=== PATIENT | female | born 1940 | race Caucasian/White ===

== ENCOUNTER 2017-12-09 13:40 | Day surgery (SDC) | payer MEDICARE, SELFPAY ==
[2017-12-09] VITALS (9 sets, daily range): BP systolic 121–138; BP diastolic 62–78; PULSE 52–61; RESP 14–22; TEMP 35.8–37; O2SAT 94–99; BMI 21.4
--- NOTE | 2017-12-09 | PATH_ITS ---
[facility] Accession Number: [id number] . 01 Material submitted: . PART A: DUODENUM PART B: GASTRIC PART C: GE JUNCTION . 02 Diagnosis: A. Duodenum, Biopsy: Duodenal mucosa with no diagnostic abnormality. Negative for active inflammation, features of sprue, dysplasia and malignancy. . B. Stomach, Biopsies: Antral mucosa with mild chronic gastritis. Negative for Helicobacter by immunohistochemistry. Negative for intestinal metaplasia. Negative for dysplasia and malignancy. . C. Gastroesophageal Junction, Biopsies: Squamous mucosa with no diagnostic abnormality. Intraepithelial eosinophils are not increased. Negative for dysplasia and malignancy. [facility]/12/16/2017 . 02 Electronically signed: . Elle Paul MD, Pathologist NPI- [id number] . 01 Gross description: . Received three formalin-filled containers each labeled with the patient's name. . A. In a container labeled duodenum, the specimen consists of a 0.1 cm portion of tissue. Entirely submitted in cassette A. B. In a container labeled gastric, the specimen consists of a 0.1 cm portion of tissue. Entirely submitted in cassette B. C. In a container labeled GE junction, the specimen consists of a 0.1 cm portion of tissue. Entirely submitted in cassette C. ([facility].[id number]) . /[facility] . 02 Microscopic: . Part B: An immunohistochemical stain was performed to evaluate for Helicobacter organisms and is negative. The control stain showed appropriate reactivity. . Technical Component of IHC was performed by [facility], [facility], [address] [place] [address] [address], [place] [address], . CLIA #[id number], director medical economics Kishan Buchanan MD . 02 Pathologist provided ICD-10: R10.9 . 02 CPT . 344344, 218728, [id number], [id number] Performed at: 01 [facility] [address] [id number] MD Donny Reyes MD Phone: [phone] Performed at: 02 [facility] [place] [id number] [place], [place] [id number] MD Dion Agrawal MD Phone: [phone]
[2017-12-09] MEDS: SODIUM CHLORIDE 0.9% 1,000 ML 200 ML IV (14:00)
--- NOTE | 2017-12-09 15:31 | PM.PREOP ---
Pre-operative Note Interval Note Pre-op Check: Yes History & Physical Reviewed by Physician Changes: No ASA Class (for procedural sedation): III
--- NOTE | 2017-12-09 15:35 | SUR.OPER ---
to endo from opd via cart respirations unlabored iv patent positioned per self for procedure
--- NOTE | 2017-12-09 16:12 | PM.OP.1 ---
Operative Date/Time/Diagnoses Date of procedure: 12/09/17 Time of procedure: 16:12 Pre-op diagnosis: Anemia Post-op diagnosis: same Procedure & Clinicians Procedure: Esophageal gastroduodenoscopy with biopsies and colonoscopy to the cecum Same procedure as scheduled: Yes Indications: Last colonoscopy 2012 Surgeon: Violet Triana Click Yes if Unassisted: Yes Anesthesia Type: Sedation (Versed 6 mg; fentanyl 100 mcg) Operative Notes Findings: 1. Normal duodenum 2. Small pyloric channel ulcer-heaped up tissue consistent with healing and without active bleeding or open crater 3. Diffuse mild gastritis 4. GE junction at 32 cm from the incisors with a 4-5 cm hiatal hernia 5. Excellent colon prep 6. No polyps or mass lesions 7. No evidence of diverticulosis 8. Anastomosis identified at 10 cm from the anal verge and without any evidence of recurrence 9. Grade 2 internal hemorrhoids Closure Type: not applicable Specimen(s): other (Cold forceps biopsies of 1. Duodenum, 2. Antrum, 3. GE junction) Estimated Blood Loss (mL): 1 Blood products transfused: none Procedure in detail: After obtaining informed consent, the patient was brought to the GI suite and placed in the left lateral decubitus position on the examination table. After placement of appropriate monitors, the patient was given incremental doses of Versed and Fentanyl until an appropriate level of sedation was achieved. A time out was held per SCOAP protocol. We began with EGD. A bite block was gently placed between the patient's teeth. The endoscope was lubricated and then passed into the patient's posterior oropharynx. The esophagus was cannulated under direct vision and the scope was passed to the second portion of the duodenum without difficulty. The scope was then withdrawn with careful examination of all areas of the upper GI tract and mucosa. In the stomach, the instrument was retroflexed and the GE junction examined. The scope was straightened and the procedure continued with examination of the remainder of the upper GI tract. Findings are noted above. Air was aspirated from the stomach and the endoscope gently removed from the esophagus. The examination table was turned and we continued with the colonoscopy. A digital rectal examination was performed and did not reveal any masses or obstructing lesions. The colonoscope was gently passed into the patient's anus and the entire colon navigated to the level of the cecum with minimal difficulty. Once in the cecum, the scope was withdrawn being sure to go before and beyond all mucosal folds and prominences and get an excellent examination. The findings are noted above. At the level of the rectal vault, the scope was retroflexed and the internal anal canal was examined. The scope was straightened and air aspirated from the colon. The instrument was removed from the patient's body and the procedure was concluded. The patient was allowed to awaken from sedation without difficulty and taken to the post-anesthesia care unit in good condition. Total sedation time was 30 min Total colonoscopy withdrawal time was 9 min Complications: none Condition: stable Disposition: PACU Plan for aftercare: 1. Discharge to home 2. We will contact you with pathology results and recommendations
--- NOTE | 2017-12-09 16:13 | SUR.OPER ---
tolerated procedure well
[2017-12-09] MEDS: LIDOCAINE 4% SOLN 50 ML 20 ML TOP (16:22)
[2017-12-09] MEDS: fentaNYL 250 MCG/5 ML INJ 100 MCG IV (16:22)
[2017-12-09] MEDS: MIDAZOLAM 5 MG/5 ML VIAL 6 MG IV (16:22)
[2017-12-09] MEDS: TETRACAINE/BENZOCAINE/BUTAMBEN (CETACAINE) BOTTLE 1 SPRAY TOP (16:23)
--- NOTE | 2017-12-09 17:00 | SUR.PHASEI ---
pt tolerating sips of juice, abdomen remains soft and non distended
== END 2017-12-09 17:39 ==
PROVIDERS: PCP Family Medicine; Visit Provider Surgery
PROC: 0DJ08ZZ Inspection of Upper Intestinal Tract, Via Natural or Artificial Opening Endoscopic (ICD-10-PCS; CPT 43235; principal; 2017-12-09 15:00)
PROC: 0DJD8ZZ Inspection of Lower Intestinal Tract, Via Natural or Artificial Opening Endoscopic (ICD-10-PCS; CPT 45378; 2017-12-09 15:00)
DX: D64.9 Anemia, unspecified (principal); K29.70 Gastritis, unspecified, without bleeding; K64.1 Second degree hemorrhoids; K44.9 Diaphragmatic hernia without obstruction or gangrene; Z85.038 Personal history of other malignant neoplasm of large intestine
CPT/HCPCS: 43239; 45378; 88305; 88342; 99152; 99153; J2250; J3010

== ENCOUNTER → 2018-03-10 13:04 | Outpatient (CLI) | payer MEDICARE, SELFPAY ==
--- NOTE | 2018-03-10 | DI.RAD.S_ITS ---
PROCEDURE: XR CHEST 2V INDICATIONS: A-FIB TECHNIQUE: 2 views of the chest were acquired. COMPARISON: [facility], , CHEST 2 VIEW, 10/17/2015, 10:48. FINDINGS: Surgical changes and devices: Surgical clips medial left supraclavicular fossa. Lungs and pleura: No pleural effusions or pneumothorax. Lungs are clear but lung bars are relatively large. Mediastinum: Mediastinal contours are normal. Heart size is normal. Bones and chest wall: No suspicious bony abnormalities. Soft tissues appear unremarkable. IMPRESSION: No sign of CHF. Relatively large lung volumes. No definite underlying pneumonia or neoplasm is suspected. Dictated by: Sriram [place] M.D. on 03/10/2018 at 14:07 Approved by: Sriram [place] M.D. on 03/10/2018 at 14:08
== END ==
PROVIDERS: Family Provider Internal Medicine Cardiovascular Disease; PCP Family Medicine; Visit Provider Family Medicine
DX: I48.91 Unspecified atrial fibrillation (principal)
CPT/HCPCS: 71046

== ENCOUNTER → 2018-09-08 10:22 | Outpatient (REF) | payer MEDICARE, SELFPAY ==
[2018-09-08 10:32] LABS: INR 1.7 (0.9-1.3); Prothrombin Time 20.3 SECONDS (10.1-12.7)
== END ==
LOC: LAB 10:22
PROVIDERS: Family Provider Internal Medicine Cardiovascular Disease; PCP Family Medicine; Visit Provider Family Medicine
DX: Z79.01 Long term (current) use of anticoagulants (principal); I48.91 Unspecified atrial fibrillation
CPT/HCPCS: 85610

== ENCOUNTER 2018-09-22 10:17 | Emergency (ER) | payer MEDICARE, SELFPAY ==
[2018-09-22] VITALS (7 sets, daily range): BP systolic 118–145; BP diastolic 61–73; PULSE 51–62; RESP 13–18; TEMP 36.3; O2SAT 95–98
[2018-09-22 11:02] LABS: Add Manual Diff / Slide Review NO; Basophils Absolute Auto 0 /uL (0-100); Basophils Percent Auto 0.6 % (0-2); Eosinophils Absolute Auto 200 /uL (0-450); Hematocrit 29.6 % (36-46); Hemoglobin 9.8 g/dL (12.0-16.0); Lymphocytes Absolute Auto 300 /uL (1100-4500); Lymphocytes Percent Auto 4.1 % (25-40); Mean Corpuscular Hemoglobin 27.1 PG (26-34); Monocytes Absolute Auto 800 /uL (0-900); Monocytes Percent Auto 10.2 % (3-14); Neutrophils Absolute Auto 6300 /uL (1500-7000); Neutrophils Percent Auto 82.1 % (50-75); Platelet Count 246 X10^3/uL (150-400); Red Blood Cell Count 3.62 X10^6/uL (4.0-5.2); Red Cell Distribution Width 14.5 % (11.6-14.8); White Blood Cell Count 7.7 X10^3/uL (4.5-11.0)
[2018-09-22 11:05] LABS: Alanine Aminotransferase 28 IU/L (9-52); Albumin 3.9 g/dL (3.5-5.0); Albumin Globulin Ratio 1.3 (1.0-2.8); Alkaline Phosphatase 110 U/L (38-126); Aspartate Aminotransferase 23 IU/L (14-36); Bilirubin Total 0.6 mg/dL (0.2-1.3); Blood Urea Nitrogen 35 mg/dL (7-17); Calcium 8.9 mg/dL (8.4-10.2); Carbon Dioxide 28 mmol/L (22-32); Chloride 102 mmol/L (98-107); Creatine Kinase 60 U/L (30-135); Estimated Glomerular Filt Rate 36.3 mL/min (>60); Glucose 96 mg/dL (80-110); HEMOLYSIS < 15 (0-50); Potassium 3.6 mmol/L (3.4-5.1); Sodium 139 mmol/L (137-145); Total Protein 6.9 g/dL (6.3-8.2)
[2018-09-22 11:10] LABS: Prothrombin Time 72.7 SECONDS (10.1-12.7)
[2018-09-22 11:17] LABS: Troponin I < 0.012 ng/mL (0.01-0.034)
--- NOTE | 2018-09-22 13:50 | DI.RAD.S_ITS ---
PROCEDURE: XR CHEST 1V INDICATIONS: shortness of breath TECHNIQUE: One view of the chest was acquired. COMPARISON: [facility], , CHEST 2 VIEW, 10/17/2015, 10:48. FINDINGS: Surgical changes and devices: Surgical clips are seen at the base of the left neck. Lungs and pleura: Perihilar interstitial prominence is present. No focal consolidation is appreciated. No large effusion or pneumothorax is identified. Mediastinum: Mediastinal contours appear normal. Heart size is mildly enlarged. There is aortic atherosclerosis. Bones and chest wall: No suspicious bony lesions. Degenerative changes of the bilateral shoulders and spine are not well characterized. Overlying soft tissues appear unremarkable. IMPRESSION: Cardiomegaly with associated moderate vascular congestion is suspicious for developing pulmonary edema. Please correlate clinically. Dictated by: George Edwards M.D. on 09/22/2018 at 13:28 Approved by: George Edwards M.D. on 09/22/2018 at 13:31
--- NOTE | 2018-09-22 14:15 | ED.WEAKNESS ---
HPI - Weakness General Chief complaint: Weakness Stated complaint: SOB Time Seen by Provider: 09/22/18 11:13 Source: patient, family and EMS Mode of arrival: ambulatory Limitations: no limitations History of Present Illness HPI Narrative: Patient presents emergency department complaining of generalized weakness for about the last week. Patient states she has been weak before, but that she has not felt like she has had her normal strength, ever since having a stress test last week. Patient states she had a non treadmill. Dress test, and that when they injected the medication to make her heart beat up, she felt as if she was going to . Patient states that since then, she has not felt as though she had her usual energy level. Patient denies fevers or chills. No cough. She states she has been a little more short of breath than normal. patient has a history of paroxysmal atrial fibrillation, and seems to have been more than usual recently. She was seen at [facility] for the same symptoms several days ago, was worked up. Troponin was negative there, and the only thing that showed up was the patient was back in atrial fibrillation. She was electrically cardioverted for her atrial fibrillation, but feels that the AFib started up very soon afterward again. Patient was found to have a subtherapeutic INR of less than 2 while at [facility], and was instructed to raise her dose of Coumadin over the next week. Patient states she has been following the regimen outlined for her. Patient sees Dr. Poe through [facility] for cardiology, but that she has seen him since the stress test. Patient does note a history of congestive heart failure, but denies swelling in her legs. No chest pain. No other complaints at this time. Related Data Home Medications Medication Instructions Recorded Confirmed simvastatin [Zocor] 20 mg PO DAILY #0 03/07/10 09/22/18 hydroxychloroquine [Plaquenil] 200 mg PO DAILY #0 07/22/17 09/22/18 nitroglycerin [Nitrostat] 0.4 mg SUBLINGUAL PRN PRN #0 07/22/17 09/22/18 warfarin 1.5 mg PO DAILY #0 07/22/17 09/22/18 carvedilol 6.25 mg PO BID 09/22/18 09/22/18 furosemide 20 mg PO DAILY 09/22/18 09/22/18 isosorbide mononitrate 30 mg PO DAILY 09/22/18 09/22/18 levothyroxine 50 mcg PO DAILY 09/22/18 09/22/18 Previous Rx's Medication Instructions Recorded furosemide 40 mg PO DAILY #5 tab 09/22/18 Allergies Allergy/AdvReac Type Severity Reaction Status Date / Time codeine [CODEINE] Allergy Severe confusion Verified 09/22/18 15:13 Penicillins [PENICILLINS] Allergy Severe SHORTNESS Verified 09/22/18 15:13 OF BREATH, SWELLING iodine [IODINE] Allergy Intermediate crab-erythema, Verified 09/22/18 15:13 itching; reported tolerating topical iodine Bleach (Sodium Hypochlorite) AdvReac Verified 09/22/18 15:13 shellfish derived AdvReac Verified 09/22/18 15:13 tree nut AdvReac Verified 09/22/18 15:13 Review of Systems Constitutional Denies chills, Reports fatigue, Denies fever(s), Denies lethargy and Reports weakness Eyes Denies change in vision, Denies eye discharge, Denies irritation and Denies loss of vision ENT Ears, Nose, Mouth, and Throat: Denies change in voice, Denies neck pain and Denies sore throat Cardiovascular Denies chest pain, Denies irregular heart rhythm, Denies lightheadedness, Denies palpitations, Denies dyspnea, Denies dyspnea on exertion and Denies orthopnea Respiratory Denies cough, Denies dyspnea, Denies dyspnea on exertion and Denies wheezing Gastrointestinal Gastrointestinal: Denies abdominal pain, Denies change in bowel habits, Denies diarrhea, Denies nausea and Denies vomiting Genitourinary Denies hematuria, Denies flank pain, Denies urinary incontinence and Denies urinary urgency Musculoskeletal Denies neck pain Integumentary/Breasts Denies pruritus, Denies erythema, Denies rash and Denies wounds Neurologic Denies confusion, Denies loss of vision and Reports weakness Psychiatric Denies anxiety, Denies confusion, Denies depression, Denies homicidal ideation and Denies suicidal ideation Endocrine Reports fatigue and Denies palpitations Hematologic/Lymphatic Denies easy bruising Allergic/Immunologic Denies wheezing [facility] Medical History Atrial fibrillation (Acute) Congestive heart failure (Acute) Coumadin toxicity (Acute) Biceps tendon rupture (Acute) Surgical History No pertinent past surgical history (Acute) Social History household members: none Social History household members: none Exam Initial Vital Signs Initial Vital Signs: Vital Signs Temperature 97.3 F L 09/22/18 10:36 Pulse Rate 60 09/22/18 10:36 Respiratory Rate 13 09/22/18 10:36 Blood Pressure 118/73 09/22/18 10:36 Pulse Oximetry 98 09/22/18 10:36 Const General: cooperative and well developed Nutritional Appearance: well nourished Orientation: alert, awake, oriented x3 and not confused Other: Patient is mildly anxious, but in no apparent distress otherwise. HENMT Head: normocephalic and atraumatic Ears: external ears normal Nose: external nose normal and No nasal discharge Face and sinus: face symmetric and No dry mucous membranes Mouth: oral mucosae normal and moist mucous membranes Teeth and gingiva: dentition normal Eyes General: appearance normal, both eyes and all related structures Eyelids: eyelids normal Conjunctivae: conjunctivae normal Sclera: sclerae normal Pupils: PERRL EOM: EOM intact bilaterally Neck Neck: normal visual inspection, trachea midline, No lymphadenopathy, No midline deformity and No JVD Lymphatic: No lymphedema Chest Chest: normal inspection of the chest Resp Effort & Inspection: normal respiratory effort, able to speak in complete sentences, no respiratory distress and no use of accessory muscles Auscultation: clear to auscultation bilaterally, no rales, no rhonchi and no wheezes Cardio Rate: regular rate Rhythm: abnormal rhythm irregularly irregular Heart Sounds: no click, no gallops, no murmurs and no rubs Pulses: normal peripheral pulses GI Inspection: non-distended Palpation: soft, no hepatosplenomegaly, No guarding, No pulsatile mass and No tender Auscultation: normal bowel sounds Back/Spine/Pelvis Back: No CVA tenderness Cervical Spine: cervical ROM normal and No pain with cervical ROM Thoracic/Lumbar Spine: thoracic and lumbar spine normal to inspection Skin General: no rashes or lesions noted, No jaundice and No petechiae Neuro General: alert, oriented x3, gait normal and no focal motor deficits Speech: speech normal Extrem General: full ROM, no pedal edema and no calf tenderness Psych Appearance: well kempt Mental Status: mental status grossly normal Attitude: cooperative Thought Content: normal and suicidality Judgment: judgment good Course Course Narrative: Patient was worked up with labs, EKG, and chest x-ray. She was found to have a moderately elevated BNP, as well as findings of mild CHF on x-ray. She also had an INR of 6.0. She was in atrial fibrillation, though the rate was well controlled. Patient was given an IV dose of Lasix. I discussed with her that the increase in the Coumadin dose has probably caused her INR to overshoot. However, the patient is not currently bleeding, and she has an appointment to have her INR recheck tomorrow. I have advised her that she should hold her dose of Coumadin tonight and see where that puts her tomorrow. I anticipate that most likely, the INR will fluid down to within the normal range by holding the Coumadin dose. I discussed with the patient that we have found mild evidence of CHF on her workup, though she does not have any lower extremity edema. Patient's troponin once again is normal, as it was at [facility]. I have attempted to get a hold of Dr. Poe, but he was not available today. I have asked the patient to follow up with her primary doctor, Dr. Lozoya, with whom I have spoken today. Dr. Lozoya has requested that I have the patient call the office tomorrow, and they will get her in an expedited fashion. Patient will also follow up for her INR recheck tomorrow. The patient continues to be in atrial fibrillation, but given that she has been in AFib but repeatedly over the last week, and that the cardioversion had very little lasting effect, I have not cardioverted her again today. Patient and son are agreeable to this plan. We have discussed the usual indications for return. Patient is stable, with good oxygen saturation and no distress. Orders Ordered: Discontinued Medications Acetaminophen (Tylenol) 650 mg PO NOW ONE Stop: 09/22/18 15:11 Last Admin: 09/22/18 15:13 Dose: 650 mg Furosemide (Lasix) 40 mg IV NOW ONE Stop: 09/22/18 15:07 Last Admin: 09/22/18 15:13 Dose: 40 mg Vital Signs - 8 hr 09/22/18 10:36 09/22/18 11:09 09/22/18 11:59 Temperature 97.3 F L Pulse Rate 60 51 L 57 L Respiratory Rate 13 Blood Pressure 118/73 Blood Pressure [Right Arm] 143/61 H Pulse Oximetry 98 96 96 09/22/18 13:15 09/22/18 14:05 Temperature Pulse Rate 62 53 L Respiratory Rate Blood Pressure Blood Pressure [Right Arm] 145/66 H 131/69 Pulse Oximetry MDM - Weakness Medical Records Attestation: I reviewed the patient's medical records. Lab Data Attestation: I reviewed the patient's lab results. Result diagrams: 09/22/18 10:50 09/22/18 10:50 Lab Results 09/22/18 09/22/18 09/22/18 Range/Units 10:50 10:50 10:50 WBC 7.7 (4.5-11.0) X10^3/uL RBC 3.62 L (4.0-5.2) X10^6/uL Hgb 9.8 L (12.0-16.0) g/dL Hct 29.6 L (36-46) % MCV 82.0 (80-100) fL MCH 27.1 (26-34) PG MCHC 33.0 (30-36) % RDW 14.5 (11.6-14.8) % Plt Count 246 (150-400) X10^3/uL Neut % (Auto) 82.1 H (50-75) % Lymph % (Auto) 4.1 L (25-40) % Gilchrist % (Auto) 10.2 (3-14) % Eos % (Auto) 3.0 (2-4) % Baso % (Auto) 0.6 (0-2) % Neut # (Auto) 6300 (5934-2143) /uL Lymph # (Auto) 300 L (3483-1331) /uL Gilchrist # (Auto) 800 (0-900) /uL Eos # (Auto) 200 (0-450) /uL Baso # (Auto) 0 (0-100) /uL PT 72.7 H (10.1-12.7) SECONDS INR 6.0 H* (0.9-1.3) Sodium 139 (137-145) mmol/L Potassium 3.6 (3.4-5.1) mmol/L Chloride 102 (98-107) mmol/L Carbon Dioxide 28 (22-32) mmol/L BUN 35 H (7-17) mg/dL Creatinine 1.40 H (0.52-1.04) mg/dL Estimated GFR 36.3 L (>60) mL/min BUN/Creatinine Ratio 25.0 H (6-22) Glucose 96 (80-110) mg/dL Calcium 8.9 (8.4-10.2) mg/dL Total Bilirubin 0.6 (0.2-1.3) mg/dL AST 23 (14-36) IU/L ALT 28 (9-52) IU/L Alkaline Phosphatase 110 (38-126) U/L Total Creatine Kinase 60 (30-135) U/L CK-MB (CK-2) TNP CK-MB (CK-2) Rel Index TNP Troponin I < 0.012 (0.01-0.034) ng/mL B-Natriuretic Peptide (<100) Total Protein 6.9 (6.3-8.2) g/dL Albumin 3.9 (3.5-5.0) g/dL Globulin 3.0 (1.7-4.1) g/dL Albumin/Globulin Ratio 1.3 (1.0-2.8) 09/22/18 Range/Units 10:50 WBC (4.5-11.0) X10^3/uL RBC (4.0-5.2) X10^6/uL Hgb (12.0-16.0) g/dL Hct (36-46) % MCV (80-100) fL MCH (26-34) PG MCHC (30-36) % RDW (11.6-14.8) % Plt Count (150-400) X10^3/uL Neut % (Auto) (50-75) % Lymph % (Auto) (25-40) % Gilchrist % (Auto) (3-14) % Eos % (Auto) (2-4) % Baso % (Auto) (0-2) % Neut # (Auto) (2630-0238) /uL Lymph # (Auto) (0119-1397) /uL Gilchrist # (Auto) (0-900) /uL Eos # (Auto) (0-450) /uL Baso # (Auto) (0-100) /uL PT (10.1-12.7) SECONDS INR (0.9-1.3) Sodium (137-145) mmol/L Potassium (3.4-5.1) mmol/L Chloride (98-107) mmol/L Carbon Dioxide (22-32) mmol/L BUN (7-17) mg/dL Creatinine (0.52-1.04) mg/dL Estimated GFR (>60) mL/min BUN/Creatinine Ratio (6-22) Glucose (80-110) mg/dL Calcium (8.4-10.2) mg/dL Total Bilirubin (0.2-1.3) mg/dL AST (14-36) IU/L ALT (9-52) IU/L Alkaline Phosphatase (38-126) U/L Total Creatine Kinase (30-135) U/L CK-MB (CK-2) CK-MB (CK-2) Rel Index Troponin I (0.01-0.034) ng/mL B-Natriuretic Peptide 1070 H (<100) Total Protein (6.3-8.2) g/dL Albumin (3.5-5.0) g/dL Globulin (1.7-4.1) g/dL Albumin/Globulin Ratio (1.0-2.8) Imaging Data Chest x-ray: Attestation: I personally reviewed and interpreted this imaging study as follows: My impression: Mild CHF Radiologist's impression: PROCEDURE: XR CHEST 1V INDICATIONS: shortness of breath TECHNIQUE: One view of the chest was acquired. COMPARISON: [facility], , CHEST 2 VIEW, 10/17/2015, 10:48. FINDINGS: Surgical changes and devices: Surgical clips are seen at the base of the left neck. Lungs and pleura: Perihilar interstitial prominence is present. No focal consolidation is appreciated. No large effusion or pneumothorax is identified. Mediastinum: Mediastinal contours appear normal. Heart size is mildly enlarged. There is aortic atherosclerosis. Bones and chest wall: No suspicious bony lesions. Degenerative changes of the bilateral shoulders and spine are not well characterized. Overlying soft tissues appear unremarkable. IMPRESSION: Cardiomegaly with associated moderate vascular congestion is suspicious for developing pulmonary edema. Please correlate clinically. Dictated by: George Edwards M.D. on 09/22/2018 at 13:28 Approved by: George Edwards M.D. on 09/22/2018 at 13:31 ECG Data Attestation: I personally reviewed and interpreted this ECG as follows: (See below) Interpretation: Twelve lead EKG performed September 22, 2018, at 10:42 a.m., as follows: Irregular ventricular rhythm with a rate of 66 beats per minute PA intervals and P-waves undetectable QRS duration 98 millisecond QTC interval [address] T wave changes Interpretation: Atrial fibrillation with normal response; nonspecific ST T wave abnormality; abnormal EKG as interpreted by ED MD. Discharge Plan Departure Patient Disposition: Home Clinical Impression: Atrial fibrillation Qualifiers: Atrial fibrillation type: chronic Qualified Code(s): I48.2 - Chronic atrial fibrillation Congestive heart failure Qualifiers: Heart failure type: unspecified Heart failure chronicity: acute on chronic Qualified Code(s): I50.9 - Heart failure, unspecified Coumadin toxicity Qualifiers: Encounter type: initial encounter Injury intent: accidental or unintentional Qualified Code(s): T45.511A - Poisoning by anticoagulants, accidental (unintentional), initial encounter Discharge Date/Time: 09/22/18 16:43 Interventions: ED Discharge Assessment Last Done: 09/22/18 16:42 Instructions: DI for Heart Failure, DI for Atrial Fibrillation Activity Restrictions/Additional Instructions: Your INR has been found to be 6.0 today. As such, you should hold off on taking your Coumadin dose tonight, and wait to take any further Coumadin until you are seen at the clinic and have your INR rechecked tomorrow. Your case has been discussed with Dr. Lozoya, who would like to see you on Friday for follow-up. Please call her office tomorrow to schedule this appointment. You will be given 5 days of Lasix at double usual dose, according to Dr. Lozoya's request. Please discuss Cardiology follow-up with Dr. Lozoya, as well. Prescriptions: New furosemide 40 mg tablet 40 mg PO DAILY Qty: 5 RF: 0 No Action simvastatin [Zocor] 20 MG tablet 20 mg PO DAILY Qty: 0 RF: 0 warfarin 1 MG tablet 1.5 mg PO DAILY Qty: 0 RF: 0 hydroxychloroquine [Plaquenil] 200 MG tablet 200 mg PO DAILY Qty: 0 RF: 0 nitroglycerin [Nitrostat] 0.4 MG tablet, sublingual 0.4 mg Sublingual PRN PRN (Reason: Chest Pain) Qty: 0 RF: 0 carvedilol 6.25 mg tablet 6.25 mg PO BID RF: 0 isosorbide mononitrate 30 mg tablet extended release 24 hr 30 mg PO DAILY RF: 0 levothyroxine 50 mcg tablet 50 mcg PO DAILY RF: 0 furosemide 20 mg tablet 20 mg PO DAILY RF: 0 Referrals: Preethi Lozoya MD [Primary Care Provider] -
[2018-09-22 14:30] LABS: B Type Natriuretic Peptide 1070 (<100)
[2018-09-22] MEDS: FUROSEMIDE 40 MG/4 ML VIAL IV (15:13)
[2018-09-22] MEDS: ACETAMINOPHEN 325 MG TABLET 650 MG PO (15:13)
== END 2018-09-22 16:43 | disposition home or self-care (01) ==
PROVIDERS: Emergency Provider Emergency Medicine; Family Provider Internal Medicine Cardiovascular Disease; PCP Family Medicine
DX: I48.2 Chronic atrial fibrillation (principal); I50.9 Heart failure, unspecified; T45.511A Poisoning by anticoagulants, accidental (unintentional), initial encounter
CPT/HCPCS: 36591; 71045; 80053; 82550; 83880; 84484; 85025; 85610; 93005; 93041; 96374; 99284; 99285; J1940

== ENCOUNTER → 2018-10-05 18:37 | Outpatient (ROUT) | payer MEDICARE, SELFPAY ==
[2018-10-05 19:44] LABS: INR 1.2 (0.9-1.3); Prothrombin Time 14.2 SECONDS (10.1-12.7)
== END ==
PROVIDERS: Family Provider Internal Medicine Cardiovascular Disease; PCP Family Medicine; Visit Provider Family Medicine
DX: I48.91 Unspecified atrial fibrillation (principal); Z79.01 Long term (current) use of anticoagulants
CPT/HCPCS: 85610

== ENCOUNTER → 2018-10-15 07:59 | Outpatient (CLI) | payer MEDICARE, SELFPAY ==
--- NOTE | 2018-10-15 | DI.US.S_ITS ---
PROCEDURE: US RENAL COMPLETE INDICATIONS: CHRONIC KIDNEY DISEASE TECHNIQUE: Real-time scanning was performed of the kidneys and bladder, with image documentation. COMPARISON: None. FINDINGS: Kidneys: Kidneys are asymmetric in size. Right kidney measures 9.6 cm long; left kidney measures 7.1 cm long. Right renal cortical thickness is 1.3 cm; left renal cortical thickness is 1.0 cm. Renal cortical echotexture is normal. No hydronephrosis or nephrolithiasis. No suspicious solid mass lesions. Bladder: Pre-void bladder volume is 160 mL. Post-void residual is 0 mL. Pre-void images demonstrate no intraluminal masses or stones. On pre-void images, right but not the left ureteral jets are noted with color Doppler interrogation. (Of note, ureteral jets may not be detectable in up to 25% of cases due to insufficient differences in specific gravity between ureteral and bladder urine). Miscellaneous: No free pelvic fluid. IMPRESSION: Asymmetric size of the kidneys, normal on the right and relatively small on the left. No hydronephrosis or nephrolithiasis seen. No urinary retention through the bladder is present. Normal bladder function. Dictated by: Sriram Jones M.D. on 10/15/2018 at 10:15 Approved by: Sriram Jones M.D. on 10/15/2018 at 10:16
== END ==
PROVIDERS: Family Provider Internal Medicine Interventional Cardiology; PCP Family Medicine; Visit Provider Family Medicine
DX: N18.9 Chronic kidney disease, unspecified (principal)
CPT/HCPCS: 76770

== ENCOUNTER → 2019-09-29 11:11 | Outpatient (ROUT) | payer MEDICARE, SELFPAY ==
[2019-09-29 11:47] LABS: INR 2.2 (0.9-1.3); Prothrombin Time 25.3 SECONDS (10.1-12.7)
== END ==
PROVIDERS: Family Provider Internal Medicine Interventional Cardiology; PCP Family Medicine; Visit Provider Family Medicine
DX: I48.91 Unspecified atrial fibrillation (principal); Z79.01 Long term (current) use of anticoagulants
CPT/HCPCS: 85610

== ENCOUNTER → 2019-10-07 11:08 | Outpatient (ROUT) | payer MEDICARE, SELFPAY ==
[2019-10-07 12:09] LABS: Prothrombin Time 33.6 SECONDS (10.1-12.7)
== END ==
PROVIDERS: Family Provider Internal Medicine Interventional Cardiology; PCP Family Medicine; Visit Provider Family Medicine
DX: Z79.01 Long term (current) use of anticoagulants (principal); I48.91 Unspecified atrial fibrillation
CPT/HCPCS: 85610

== ENCOUNTER → 2019-10-20 10:52 | Outpatient (ROUT) | payer MEDICARE, SELFPAY ==
[2019-10-20 11:00] LABS: INR 1.8 (0.9-1.3); Prothrombin Time 20.4 SECONDS (10.1-12.7)
== END ==
PROVIDERS: Family Provider Internal Medicine Interventional Cardiology; PCP Family Medicine; Visit Provider Family Medicine
DX: I48.91 Unspecified atrial fibrillation (principal); Z79.01 Long term (current) use of anticoagulants
CPT/HCPCS: 85610

== ENCOUNTER → 2019-11-11 10:23 | Outpatient (ROUT) | payer MEDICARE, SELFPAY ==
[2019-11-11 10:49] LABS: INR 2.3 (0.9-1.3); Prothrombin Time 26.7 SECONDS (10.1-12.7)
== END ==
PROVIDERS: Family Provider Internal Medicine Interventional Cardiology; PCP Family Medicine; Visit Provider Family Medicine
DX: I48.91 Unspecified atrial fibrillation (principal); Z79.01 Long term (current) use of anticoagulants
CPT/HCPCS: 85610

== ENCOUNTER → 2019-11-18 14:22 | Outpatient (CLI) | payer MEDICARE, SELFPAY ==
[2019-11-18 15:07] LABS: Add Manual Diff / Slide Review NO; Basophils Absolute Auto 100 /uL (0-100); Basophils Percent Auto 1.2 % (0-2); Eosinophils Absolute Auto 200 /uL (0-450); Eosinophils Percent Auto 3.4 % (2-4); Hematocrit 37.8 % (36-46); Hemoglobin 12.9 g/dL (12.0-16.0); Lymphocytes Absolute Auto 500 /uL (1100-4500); Mean Corpuscular HGB Conc 34.1 % (30-36); Mean Corpuscular Hemoglobin 29.4 PG (26-34); Mean Corpuscular Volume 86.1 fL (80-100); Monocytes Absolute Auto 600 /uL (0-900); Monocytes Percent Auto 11.7 % (3-14); Neutrophils Absolute Auto 3900 /uL (1500-7000); Neutrophils Percent Auto 73.7 % (50-75); Platelet Count 230 X10^3/uL (150-400); Red Blood Cell Count 4.39 X10^6/uL (4.0-5.2); Red Cell Distribution Width 14.2 % (11.6-14.8); White Blood Cell Count 5.3 X10^3/uL (4.5-11.0)
[2019-11-18 15:14] LABS: BUN Creatinine Ratio 15.3 (6-22); Blood Urea Nitrogen 33 mg/dL (7-17); Calcium 9.9 mg/dL (8.4-10.2); Carbon Dioxide 34 mmol/L (22-32); Chloride 97 mmol/L (98-107); Estimated Glomerular Filt Rate 21.9 mL/min (>60); Glucose 88 mg/dL (80-110); HEMOLYSIS < 15 (0-50); Potassium 3.4 mmol/L (3.4-5.1); Sodium 138 mmol/L (137-145)
[2019-11-18 16:16] LABS: Creatinine Urine Random 165.5 mg/dL
[2019-11-18 16:20] LABS: Microalbumi Creatinin Ratio Ur 4.8 ug/mg CR (<30); Microalbumin Urine Random 0.8 mg/dL (0-1.6)
== END ==
PROVIDERS: Nurse Practitioner; Family Provider Internal Medicine Interventional Cardiology; PCP Family Medicine; Referring Provider Internal Medicine Nephrology; Visit Provider Internal Medicine Nephrology
DX: I70.1 Atherosclerosis of renal artery (principal); N18.3 Chronic kidney disease, stage 3 (moderate)
CPT/HCPCS: 36415; 80048; 82043; 82570; 85025

== ENCOUNTER → 2019-12-07 11:09 | Outpatient (CLI) | payer MEDICARE, SELFPAY ==
[2019-12-07 13:17] LABS: BUN Creatinine Ratio 12.3 (6-22); Blood Urea Nitrogen 19 mg/dL (7-17); Calcium 9.5 mg/dL (8.4-10.2); Carbon Dioxide 23 mmol/L (22-32); Chloride 108 mmol/L (98-107); Estimated Glomerular Filt Rate 32.3 mL/min (>60); Glucose 82 mg/dL (80-110); HEMOLYSIS < 15 (0-50); Magnesium 1.9 mg/dL (1.6-2.3); Potassium 4.4 mmol/L (3.4-5.1); Sodium 138 mmol/L (137-145); Uric Acid 8.6 mg/dL (2.5-6.2)
[2019-12-07 14:46] LABS: Vitamin D 25 Hydroxy (D3) 55.1 ng/mL (30.0-100.0)
[2019-12-08 06:40] LABS: Parathyroid Hormone Int 42 pg/mL (15-65)
== END ==
PROVIDERS: Family Provider Internal Medicine Interventional Cardiology; PCP Family Medicine; Referring Provider Internal Medicine Nephrology; Visit Provider Internal Medicine Nephrology
DX: N18.3 Chronic kidney disease, stage 3 (moderate) (principal)
CPT/HCPCS: 36415; 80048; 82306; 83735; 83970; 84550

== ENCOUNTER → 2019-12-09 11:15 | Outpatient (ROUT) | payer MEDICARE, SELFPAY ==
[2019-12-09 11:35] LABS: INR 2.6 (0.9-1.3); Prothrombin Time 29.3 SECONDS (10.1-12.7)
== END ==
PROVIDERS: Family Provider Internal Medicine Interventional Cardiology; PCP Family Medicine; Visit Provider Family Medicine
DX: I48.91 Unspecified atrial fibrillation (principal); Z79.01 Long term (current) use of anticoagulants
CPT/HCPCS: 85610

== ENCOUNTER → 2019-12-31 10:52 | Outpatient (ROUT) | payer MEDICARE, SELFPAY ==
[2019-12-31 11:28] LABS: INR 3.5 (0.9-1.3); Prothrombin Time 40.2 SECONDS (10.1-12.7)
== END ==
PROVIDERS: Family Provider Internal Medicine Interventional Cardiology; PCP Family Medicine; Visit Provider Family Medicine
DX: I48.91 Unspecified atrial fibrillation (principal); Z79.01 Long term (current) use of anticoagulants
CPT/HCPCS: 85610

== ENCOUNTER → 2020-02-03 12:06 | Outpatient (ROUT) | payer MEDICARE, SELFPAY ==
[2020-02-03 12:21] LABS: INR 1.9 (0.9-1.3); Prothrombin Time 22.2 SECONDS (10.1-12.7)
== END ==
PROVIDERS: Family Provider Internal Medicine Interventional Cardiology; PCP Family Medicine; Visit Provider Family Medicine
DX: I48.91 Unspecified atrial fibrillation (principal); Z79.01 Long term (current) use of anticoagulants
CPT/HCPCS: 85610

== ENCOUNTER → 2020-02-09 10:53 | Outpatient (ROUT) | payer MEDICARE, SELFPAY ==
[2020-02-09 11:23] LABS: INR 2.4 (0.9-1.3); Prothrombin Time 27.2 SECONDS (10.1-12.7)
== END ==
PROVIDERS: Family Provider Internal Medicine Interventional Cardiology; PCP Family Medicine; Visit Provider Family Medicine
DX: I48.91 Unspecified atrial fibrillation (principal); Z79.01 Long term (current) use of anticoagulants
CPT/HCPCS: 85610

== ENCOUNTER → 2020-02-28 11:29 | Outpatient (ROUT) | payer MEDICARE, SELFPAY ==
[2020-02-28 11:38] LABS: INR 2.7 (0.9-1.3); Prothrombin Time 31.1 SECONDS (10.1-12.7)
== END ==
PROVIDERS: Family Provider Internal Medicine Interventional Cardiology; PCP Family Medicine; Visit Provider Family Medicine
DX: I48.91 Unspecified atrial fibrillation (principal); Z79.01 Long term (current) use of anticoagulants
CPT/HCPCS: 85610

== ENCOUNTER → 2020-07-18 14:38 | Outpatient (ROUT) | payer MEDICARE, SELFPAY ==
[2020-07-18 14:46] LABS: INR 1.4 (0.9-1.3)
== END ==
PROVIDERS: Family Provider Internal Medicine Interventional Cardiology; PCP Family Medicine; Visit Provider Family Medicine
DX: I48.91 Unspecified atrial fibrillation (principal); Z79.01 Long term (current) use of anticoagulants
CPT/HCPCS: 85610

== ENCOUNTER → 2020-11-14 12:11 | Outpatient (CLI) | payer MEDICARE, SELFPAY ==
--- NOTE | 2020-11-14 | DI.RAD.S_ITS ---
PROCEDURE: XR ANKLE RT MIN 3V INDICATIONS: RIGHT ANKLE PAIN TECHNIQUE: 3 views of the ankle were acquired. COMPARISON: None. FINDINGS: Bones: The lateral view is suboptimal. Ankle mortise is normally aligned. No suspicious bony lesions. Moderate degenerative joint disease. Soft tissues: No tibiotalar joint effusion. Achilles tendon appears normal. Severe atherosclerotic calcifications. IMPRESSION: 1. The lateral view is suboptimal. Cannot rule out subtle fracture. Repeat examination is suggested. 2. Moderately severe degenerative joint disease is present. Dictated by: Donnie Villeda M.D. on 11/14/2020 at 17:41 Approved by: Donnie Villeda M.D. on 11/14/2020 at 17:46
== END ==
PROVIDERS: Family Provider Internal Medicine Interventional Cardiology; PCP Family Medicine; Referring Provider Family Medicine; Visit Provider Family Medicine
DX: M25.571 Pain in right ankle and joints of right foot (principal); M19.071 Primary osteoarthritis, right ankle and foot
CPT/HCPCS: 73610